=== PATIENT | male | born 1980 | race Hispanic/Latino ===

== ENCOUNTER → 2017-03-11 | Outpatient (CLI) | payer OTHER ==
[~2017-03-11] MED LIST: OMEPRAZOLE40 M1 PO
== END | disposition home or self-care (01) ==
LOC: AMB 09:14
DX: K29.50 Unspecified chronic gastritis without bleeding (principal); B96.81 Helicobacter pylori [H. pylori] as the cause of diseases classified elsewhere; D13.0 Benign neoplasm of esophagus; F45.8 Other somatoform disorders; K21.9 Gastro-esophageal reflux disease without esophagitis
CPT/HCPCS: 88305; 88342 TC; J2250; J3010